=== PATIENT | female | born 1975 | race Caucasian/White ===

== ENCOUNTER 2022-07-31 21:02 | Emergency (ER) | payer OTHER ==
[2022-07-31 21:16] VITALS: BP 100/65; PULSE 76; RESP 18; TEMP 98; BMI 23.9
== END 2022-07-31 23:27 | disposition home or self-care (01) ==
LOC: JER 21:02
DX: F10.288 Alcohol dependence with other alcohol-induced disorder (principal); F11.90 Opioid use, unspecified, uncomplicated; F19.10 Other psychoactive substance abuse, uncomplicated; Y90.9 Presence of alcohol in blood, level not specified; Z20.822 Contact with and (suspected) exposure to COVID-19
CPT/HCPCS: 99283-25; C9803-CS; U0003; U0005

== ENCOUNTER 2022-08-01 19:52 | Emergency (ER) | payer OTHER ==
[2022-08-01 19:59] VITALS: BP 125/76; PULSE 72; RESP 19; TEMP 98.6; BMI 23.8
== END 2022-08-01 22:49 | disposition home or self-care (01) ==
LOC: JER 19:52
DX: F10.20 Alcohol dependence, uncomplicated (principal); F19.20 Other psychoactive substance dependence, uncomplicated
CPT/HCPCS: 99282-25

== ENCOUNTER 2022-08-01 23:36 | Inpatient (IN) | payer OTHER ==
[2022-08-02 00:38] VITALS: BMI 23.9
[2022-08-02] MEDS ORDERED: NALOXONE HCL 0.4 MG/ML VIAL IM PRN (01:14)
[2022-08-02] MEDS ORDERED: ONDANSETRON *ODT* 4 MG TABLET SL PRN (01:14)
[2022-08-02] MEDS ORDERED: NICOTINE POLACRILEX 2 MG GUM BUC PRN (01:14)
[2022-08-02] MEDS ORDERED: MAGNESIUM HYDROX 2400MG/30ML ORAL SUSPENSION 30 ML CUP PO PRN (01:14)
[2022-08-02] MEDS ORDERED: MAG HYDROX/AL HYDROX/SIMETH 30 ML UNIT-DOSE CUP PO PRN (01:14)
[2022-08-02] MEDS ORDERED: ACETAMINOPHEN 325 MG TABLET (FP) PO PRN (01:14)
[2022-08-02] MEDS ORDERED: BENZOCAINE/MENTHOL (CHLORASEPTIC ) LOZENGE MM PRN (01:14)
[2022-08-02] MEDS ORDERED: NALOXONE HCL (KLOXXADO) 8 MG SPRAY NS PRN (01:14)
[2022-08-02] MEDS ORDERED: BENZONATATE 200 MG CAPSULE PO PRN (01:14)
[2022-08-02] MEDS ORDERED: guaiFENesin 600 MG TABLET.ER (FP) PO PRN (01:14)
[2022-08-02] MEDS ORDERED: POLYETHYLENE GLYCOL (HEALTHYLAX) 3350 17 GM PACKET PO PRN (01:14)
[2022-08-02] MEDS ORDERED: hydrOXYzine PAMOATE 25 MG CAPSULE (FP) PO PRN (01:14)
[2022-08-02] MEDS ORDERED: BISMUTH SUBSALICYLATE 524 MG/30 ML PO PRN (01:14)
[2022-08-02] MEDS ORDERED: IBUPROFEN 400 MG TABLET (FP) PO PRN (01:14)
[2022-08-02] MEDS ORDERED: LOPERAMIDE HCL 2 MG CAPSULE PO PRN (01:14)
[2022-08-02] MEDS ORDERED: DICYCLOMINE HCL 10 MG CAPSULE PO PRN (01:14)
[2022-08-02] MEDS: NICOTINE 14 MG/24 HOURS TOPICAL PATCH TD SCH (10:44)
[2022-08-02] MEDS: PRENATAL VITAMINS W/ FOLIC ACID TABLET (FP) PO SCH (10:44)
[2022-08-02 13:52] LABS: HEMOGLOBIN 12.7 GM/dL (10.7-15.3); MCH 30.8 pg (25.7-33.7); MCHC 34.4 g/dl (32.0-36.0); MEAN CELL VOLUME 89.5 fl (80-96); MEAN PLT VOLUME 8.4 fl (7.5-11.1); PLATELET COUNT 210 10^3/uL (134-434); RBC 4.13 M/mm3 (3.60-5.2); RDW 13.5 % (11.6-15.6); WHITE BLOOD COUNT 3.4 K/mm3 (4.0-10.0)
[2022-08-02 14:04] LABS: POTASSIUM 3.6 mmol/L (3.5-5.1)
[2022-08-02 14:12] LABS: CALCIUM 8.5 mg/dL (8.5-10.1)
[2022-08-02 14:14] LABS: ALBUMIN 2.8 g/dl (3.4-5.0)
[2022-08-02 14:16] LABS: CREATININE 0.6 mg/dL (0.55-1.3)
[2022-08-02 14:17] LABS: BILIRUBIN,TOTAL 0.8 mg/dL (0.2-1)
[2022-08-02 14:18] LABS: TOT PROT 6.1 g/dl (6.4-8.2)
[2022-08-02] MEDS ORDERED: diazePAM 5 MG TABLET PO ONE (14:26)
[2022-08-02] MEDS ORDERED: diazePAM 5 MG TABLET PO PRN (14:26)
[2022-08-02] MEDS ORDERED: methaDONE HCL 40 MG DISPERSABLE TABLET PO SCH (14:45)
[2022-08-02] MEDS: IBUPROFEN 600 MG TABLET (FP) PO PRN (14:59)
[2022-08-02] MEDS: METHOCARBAMOL 500 MG TABLET PO PRN (14:59)
[2022-08-02] MEDS: diazePAM 5 MG TABLET PO SCH ×2 (17:15→22:10)
[2022-08-02 17:19] VITALS: RESP 18
[2022-08-02] MEDS: MELATONIN 5 MG TABLETS PO SCH (22:10)
[2022-08-02] MEDS: THIAMINE HCL 100 MG TABLET (FP) PO SCH (22:10)
[2022-08-03] MEDS: diazePAM 5 MG TABLET PO SCH ×4 (05:22→22:47)
[2022-08-03] MEDS: NICOTINE 14 MG/24 HOURS TOPICAL PATCH TD SCH (10:46)
[2022-08-03] MEDS: PRENATAL VITAMINS W/ FOLIC ACID TABLET (FP) PO SCH (10:46)
[2022-08-03] MEDS: METHOCARBAMOL 500 MG TABLET PO PRN (15:04)
[2022-08-03] MEDS: IBUPROFEN 600 MG TABLET (FP) PO PRN (15:05)
[2022-08-03 20:43] VITALS: BP 136/72; PULSE 81; TEMP 97.8
[2022-08-03] MEDS: MELATONIN 5 MG TABLETS PO SCH (22:46)
[2022-08-03] MEDS: THIAMINE HCL 100 MG TABLET (FP) PO SCH (22:46)
[2022-08-04] MEDS ORDERED: diazePAM 5 MG TABLET PO SCH (06:00)
[2022-08-05] MEDS ORDERED: diazePAM 5 MG TABLET PO SCH (06:00)
[2022-08-06] MEDS ORDERED: diazePAM 5 MG TABLET PO ONE (06:00)
== END 2022-08-03 23:55 | disposition left against medical advice (07) | DRG 770 ==
LOC: YASAS 23:36 → UNDOADMIN 08-02 02:28 → Y6N 08-02 02:28 → UNDODISIN 08-03 23:55
PROVIDERS: ADMIT Allergy & Immunology; ATTEND Allergy & Immunology
PROC: HZ2ZZZZ Detoxification Services for Substance Abuse Treatment (ICD-10-PCS; principal; 2022-08-02)
DX: F10.230 Alcohol dependence with withdrawal, uncomplicated (principal); F11.20 Opioid dependence, uncomplicated; F14.20 Cocaine dependence, uncomplicated; F17.210 Nicotine dependence, cigarettes, uncomplicated; F19.24 Other psychoactive substance dependence with psychoactive substance-induced mood disorder; J45.20 Mild intermittent asthma, uncomplicated; Z86.59 Personal history of other mental and behavioral disorders
CPT/HCPCS: 36415; 80053; 81025; 85027; 86780; 93005; 93010; 99283-25; C9803-CS; U0003; U0005

== ENCOUNTER 2024-09-28 14:55 | Inpatient (IN) | payer OTHER ==
[2024-09-28 15:33] VITALS: BMI 25.2
[2024-09-28] MEDS ORDERED: NICOTINE POLACRILEX 2 MG GUM BUC PRN (16:36)
[2024-09-28] MEDS ORDERED: NALOXONE (NARCAN) HCL 4 MG/0.1 ML SPRAY NS PRN (16:36)
[2024-09-28] MEDS ORDERED: NICOTINE POLACRILEX 2 MG LOZENGE BC PRN (16:36)
[2024-09-28] MEDS ORDERED: guaiFENesin 600 MG TABLET.ER (FP) PO PRN (16:36)
[2024-09-28] MEDS ORDERED: P-EPHED 60MG/TRIPROLIDI 2.5MG TABLET PO PRN (16:36)
[2024-09-28] MEDS ORDERED: LOPERAMIDE HCL 2 MG CAPSULE PO PRN (16:36)
[2024-09-28] MEDS ORDERED: BENZONATATE 200 MG CAPSULE PO PRN (16:36)
[2024-09-28] MEDS ORDERED: MAGNESIUM HYDROX 2400MG/30ML ORAL SUSPENSION 30 ML CUP PO PRN (16:36)
[2024-09-28] MEDS ORDERED: POLYETHYLENE GLYCOL (HEALTHYLAX) 3350 17 GM PACKET PO PRN (16:36)
[2024-09-28] MEDS ORDERED: BENZOCAINE/MENTHOL (CHLORASEPTIC ) LOZENGE MM PRN (16:36)
[2024-09-28] MEDS ORDERED: ACETAMINOPHEN 325 MG TABLET (FP) PO PRN (16:36)
[2024-09-28] MEDS ORDERED: ALBUTEROL SO4 HFA INHALER IH PRN (18:39)
[2024-09-28] MEDS: PANTOPRAZOLE 40 MG TABLET PO SCH (19:15)
[2024-09-28] MEDS: DOXYCYCLINE HYCLATE 100 MG TABLET PO SCH (19:15)
[2024-09-28] MEDS: TUBERCULIN PPD 5 TU/0.1ML SYRINGE (IN PATIENT USE ONLY) ID ONE (19:19)
[2024-09-28] MEDS ORDERED: TUBERCULIN PPD 5 TU/0.1ML SYRINGE (IN PATIENT USE ONLY) ID ONE (20:37)
[2024-09-28] MEDS: ATORVASTATIN CA 80 MG TABLET (FP) PO SCH (22:07)
[2024-09-28] MEDS: hydrOXYzine PAMOATE 25 MG CAPSULE (FP) PO PRN (22:07)
[2024-09-28] MEDS: THIAMINE 100 MG TABLET PO SCH (22:08)
[2024-09-28] MEDS: MELATONIN 5 MG TABLETS PO SCH (22:08)
[2024-09-29 02:34] LABS: URINE APPEARANCE Error; URINE BILIRUBIN NEGATIVE (NEGATIVE); URINE COLOR YELLOW; URINE GLUCOSE (UA) NEGATIVE (NEGATIVE); URINE KETONE NEGATIVE (NEGATIVE); URINE LEUK ESTERASE NEGATIVE (NEGATIVE); URINE NITRITE NEGATIVE (NEGATIVE); URINE PROTEIN NEGATIVE (NEGATIVE); URINE UROBILINOGEN 0.2 mg/dL (0.2-1.0)
[2024-09-29] MEDS: MAG HYDROX/AL HYDROX/SIMETH 30 ML UNIT-DOSE CUP PO PRN (07:17)
[2024-09-29] MEDS: ASPIRIN 81 MG CHEWABLE TABLETS PO SCH (09:54)
[2024-09-29] MEDS: PRENATAL VITAMINS W/ FOLIC ACID TABLET (FP) PO SCH (09:54)
[2024-09-29] MEDS: BACITRACIN 0.9 GM PACKET TP SCH (11:11)
[2024-09-29 11:34] LABS: MCHC 31.8 g/dl (32.2-35.5); MEAN CELL VOLUME 94.8 fl (79.4-94.8); MEAN PLT VOLUME 10.4 fl (9.4-12.3); RDW 13.4 % (12.2-17.1)
[2024-09-29 13:11] LABS: CO2 30 mmol/L (21-32); GLUCOSE,RANDOM 110 mg/dL (74-106)
[2024-09-29 13:14] LABS: CREATININE 0.7 mg/dL (0.55-1.3); SGOT/AST 17 U/L (15-37); SGPT/ALT 30 U/L (13-61)
[2024-09-29 13:16] LABS: TOT PROT 7.3 g/dl (6.4-8.2)
[2024-09-29 13:20] LABS: ALK PHOS 60 U/L (45-117)
[2024-09-29 14:11] LABS: SYPHILIS W/ RPR CONF NON-REACTIVE (NONREACTIVE)
[2024-09-29 15:16] LABS: HCV DIAGNOSTIC IN-HOUSE W/RFLX REACTIVE (NONREACTIVE)
[2024-09-29 15:24] LABS: HIV INTERPRETATION NEGATIVE (NEGATIVE)
[2024-09-29] MEDS: traZODone HCL 100 MG TABLET (FP) PO SCH (21:45)
[2024-10-01] MEDS: IBUPROFEN 400 MG TABLET (FP) PO PRN (17:40)
[2024-10-03] MEDS: IBUPROFEN 600 MG TABLET (FP) PO PRN (13:11)
[2024-10-06] MEDS ORDERED: ATORVASTATIN CA 40 MG TABLET (FP) ONE (19:50)
[2024-10-07] MEDS: FAMOTIDINE 10 MG TABLET PO SCH (15:30)
[2024-10-07] MEDS: PANTOPRAZOLE 20 MG TABLET PO SCH (16:15)
[2024-10-07] MEDS ORDERED: ATORVASTATIN CA 40 MG TABLET (FP) ONE (19:52)
[2024-10-08] MEDS ORDERED: ATORVASTATIN CA 40 MG TABLET (FP) ONE (19:52)
[2024-10-08] MEDS: traZODone HCL 50 MG TABLET (FP) PO SCH (21:33)
[2024-10-09] MEDS ORDERED: ATORVASTATIN CA 40 MG TABLET (FP) ONE (20:41)
[2024-10-10] MEDS ORDERED: ATORVASTATIN CA 20 MG TABLET (FP) ONE (19:59)
[2024-10-11] MEDS ORDERED: ATORVASTATIN CA 40 MG TABLET (FP) ONE (19:49)
[2024-10-12] MEDS ORDERED: ATORVASTATIN CA 40 MG TABLET (FP) ONE (20:10)
[2024-10-13] MEDS ORDERED: ATORVASTATIN CA 40 MG TABLET (FP) ONE (19:55)
[2024-10-14] MEDS ORDERED: ATORVASTATIN CA 40 MG TABLET (FP) ONE (19:47)
[2024-10-15] MEDS ORDERED: ATORVASTATIN CA 40 MG TABLET (FP) ONE (20:00)
[2024-10-16] MEDS ORDERED: ATORVASTATIN CA 40 MG TABLET (FP) ONE (20:19)
[2024-10-17] MEDS ORDERED: ATORVASTATIN CA 40 MG TABLET (FP) ONE (19:51)
[2024-10-18] MEDS ORDERED: ATORVASTATIN CA 40 MG TABLET (FP) ONE (19:50)
[2024-10-19 07:26] VITALS: BP 112/67; PULSE 82; RESP 18; TEMP 97.6
== END 2024-10-19 10:47 | disposition home or self-care (01) | DRG 772 ==
LOC: YASAS 14:55 → Y3NR 17:12 → Y5N 10-06 11:52
PROVIDERS: ADMIT Neuromusculoskeletal Medicine & OMM; ATTEND Psychiatry & Neurology Pain Medicine
PROC: HZ42ZZZ Group Counseling for Substance Abuse Treatment, Cognitive-Behavioral (ICD-10-PCS; principal; 2024-09-28)
DX: F14.20 Cocaine dependence, uncomplicated (principal); F17.210 Nicotine dependence, cigarettes, uncomplicated; F31.9 Bipolar disorder, unspecified; F41.9 Anxiety disorder, unspecified; F39 Unspecified mood [affective] disorder; G47.00 Insomnia, unspecified; E78.5 Hyperlipidemia, unspecified; J45.20 Mild intermittent asthma, uncomplicated; K21.9 Gastro-esophageal reflux disease without esophagitis; Z86.73 Personal history of transient ischemic attack (TIA), and cerebral infarction without residual deficits; Z59.00 Homelessness unspecified
CPT/HCPCS: 36415; 80053; 80305; 80307; 81003; 81025; 85027; 86780; 86803; 87389; 87522; 87811; 93005; 93010

== ENCOUNTER 2024-12-06 20:51 | Inpatient (IN) | payer OTHER ==
[2024-12-06 18:17] VITALS: BMI 26.5
[~2024-12-06 20:51] MED LIST: ACETAMINOPHEN 325 MG TABLET (FP) PO PRN; BENZOCAINE/MENTHOL (CHLORASEPTIC ) LOZENGE MM PRN; BENZONATATE 200 MG CAPSULE PO PRN; MAG HYDROX/AL HYDROX/SIMETH 30 ML UNIT-DOSE CUP PO PRN; MAGNESIUM HYDROX 2400MG/30ML ORAL SUSPENSION 30 ML CUP PO PRN; NALOXONE (NARCAN) HCL 4 MG/0.1 ML SPRAY NS PRN; NICOTINE POLACRILEX 2 MG GUM BUC PRN; NICOTINE POLACRILEX 2 MG LOZENGE BC PRN; POLYETHYLENE GLYCOL (HEALTHYLAX) 3350 17 GM PACKET PO PRN; guaiFENesin 600 MG TABLET.ER (FP) PO PRN
[2024-12-06] MEDS: THIAMINE 100 MG TABLET PO SCH (23:55)
[2024-12-06] MEDS: hydrOXYzine PAMOATE 25 MG CAPSULE (FP) PO PRN (23:55)
[2024-12-06] MEDS: MELATONIN 5 MG TABLETS PO SCH (23:55)
[2024-12-07] MEDS ORDERED: ALBUTEROL SO4 HFA INHALER IH PRN (08:33)
[2024-12-07 10:33] LABS: MCHC 31.7 g/dl (32.2-35.5); MEAN CELL VOLUME 92.5 fl (79.4-94.8); MEAN PLT VOLUME 10.9 fl (9.4-12.3); RDW 14.1 % (12.2-17.1)
[2024-12-07 10:38] LABS: GLUCOSE,RANDOM 85.0 mg/dL (74-106)
[2024-12-07 10:39] LABS: TOT PROT 8.1 g/dl (6.4-8.2)
[2024-12-07 10:40] LABS: CO2 26.0 mmol/L (21-32)
[2024-12-07 10:41] LABS: ALK PHOS 109.0 U/L (40-150)
[2024-12-07] MEDS: PATIENT'S OWN MEDICATION (NON-FORMULARY) (Doxycycline Hyclate [Doxycycline Hyclate] 100 MG PO SCH (10:43)
[2024-12-07] MEDS: ASPIRIN 81 MG CHEWABLE TABLETS PO SCH (10:43)
[2024-12-07] MEDS: PRENATAL VITAMINS W/ FOLIC ACID TABLET (FP) PO SCH (10:43)
[2024-12-07] MEDS: PATIENT'S OWN MEDICATION (NON-FORMULARY) (Metronidazole [Metronidazole] 500 MG Tablet) PO SCH (10:43)
[2024-12-07] MEDS: PANTOPRAZOLE 40 MG TABLET PO SCH (10:43)
[2024-12-07] MEDS: levETIRAcetam 500 MG TABLET (FP) PO SCH (10:43)
[2024-12-07 10:44] LABS: CREATININE 0.56 mg/dL (0.55-1.3); SGOT/AST 43.0 U/L (5-34); SGPT/ALT 121.0 U/L (0-55)
[2024-12-07 10:45] LABS: URINE APPEARANCE CLEAR; URINE BILIRUBIN NEGATIVE (NEGATIVE); URINE COLOR YELLOW; URINE GLUCOSE (UA) NEGATIVE (NEGATIVE); URINE KETONE NEGATIVE (NEGATIVE); URINE LEUK ESTERASE NEGATIVE (NEGATIVE); URINE NITRITE NEGATIVE (NEGATIVE); URINE PROTEIN NEGATIVE (NEGATIVE); URINE UROBILINOGEN 0.2 mg/dL (0.2-1.0)
[2024-12-07] MEDS ORDERED: ATORVASTATIN CA 40 MG TABLET (FP) ONE (20:26)
[2024-12-07] MEDS: traZODone HCL 100 MG TABLET (FP) PO SCH (21:10)
[2024-12-07] MEDS: ATORVASTATIN CA 80 MG TABLET (FP) PO SCH (21:11)
[2024-12-08] MEDS ORDERED: ATORVASTATIN CA 40 MG TABLET (FP) ONE (19:58)
[2024-12-09] MEDS: IBUPROFEN 600 MG TABLET (FP) PO PRN (06:52)
[2024-12-09] MEDS ORDERED: ATORVASTATIN CA 40 MG TABLET (FP) ONE (20:43)
[2024-12-10] MEDS: IBUPROFEN 400 MG TABLET (FP) PO PRN (06:31)
[2024-12-10 18:23] LABS: HIV INTERPRETATION NEGATIVE (NEGATIVE)
[2024-12-10] MEDS ORDERED: ATORVASTATIN CA 40 MG TABLET (FP) ONE (20:23)
[2024-12-11] MEDS ORDERED: ATORVASTATIN CA 40 MG TABLET (FP) ONE (19:46)
[2024-12-12] MEDS ORDERED: ATORVASTATIN CA 40 MG TABLET (FP) ONE (20:12)
[2024-12-13] MEDS: ACYCLOVIR 400 MG TABLET PO SCH (13:45)
[2024-12-13] MEDS ORDERED: ATORVASTATIN CA 40 MG TABLET (FP) ONE (18:54)
[2024-12-14 12:04] LABS: ABSOLUTE IMMATURE GRANULOCYTES 0.01 x10^3/uL (0.0-0.031); BASOPHILS # 0.03 x10^3/uL (0.01-0.08); EOSINOPHIL % 1.3 % (0.7-5.8); EOSINOPHILS # 0.09 x10^3/uL (0.04-0.36); MCHC 31.7 g/dl (32.2-35.5); MEAN CELL VOLUME 91.6 fl (79.4-94.8); MEAN PLT VOLUME 11.1 fl (9.4-12.3); MONOCYTE # 0.58 x10^3/uL (0.24-0.86); MONOCYTE % 8.5 % (4.7-12.5); RDW 14.1 % (12.2-17.1)
[2024-12-14 12:08] LABS: INR 0.94 (0.83-1.09); PROTHROMBIN TIME (PATIENT) 10.3 SEC (9.7-13.0)
[2024-12-14 12:31] LABS: GLUCOSE,RANDOM 83.0 mg/dL (74-106); TOT PROT 8.5 g/dl (6.4-8.2)
[2024-12-14 12:32] LABS: CO2 26.0 mmol/L (21-32)
[2024-12-14 12:34] LABS: ALK PHOS 75.0 U/L (40-150)
[2024-12-14 12:37] LABS: CREATININE 0.62 mg/dL (0.55-1.3); SGOT/AST 39.0 U/L (5-34); SGPT/ALT 59.0 U/L (0-55)
[2024-12-14] MEDS ORDERED: ATORVASTATIN CA 40 MG TABLET (FP) ONE (20:09)
[2024-12-15] MEDS ORDERED: ATORVASTATIN CA 40 MG TABLET (FP) ONE (20:05)
[2024-12-16] MEDS ORDERED: ATORVASTATIN CA 40 MG TABLET (FP) ONE (20:09)
[2024-12-17] MEDS ORDERED: ATORVASTATIN CA 40 MG TABLET (FP) ONE (18:52)
[2024-12-17] MEDS: hydrOXYzine PAMOATE 25 MG CAPSULE (FP) PO PRN (21:17)
[2024-12-17] MEDS: traZODone HCL 100 MG, traZODone HCL 50 MG PO SCH (21:18)
[2024-12-17] MEDS ORDERED: traZODone HCL 100 MG TABLET (FP) PO SCH (22:00)
[2024-12-18] MEDS ORDERED: ATORVASTATIN CA 40 MG TABLET (FP) ONE (19:31)
[2024-12-19] MEDS ORDERED: ATORVASTATIN CA 40 MG TABLET (FP) ONE (19:35)
[2024-12-19] MEDS: DOXYCYCLINE HYCLATE 100 MG TABLET PO SCH (22:25)
[2024-12-20] MEDS: PRENATAL VITAMINS W/ FOLIC ACID TABLET (FP) PO SCH (07:24)
[2024-12-20] MEDS ORDERED: DOXYCYCLINE HYCLATE 100 MG TABLET PO SCH (10:00)
[2024-12-20] MEDS: SULFAMETHOXAZOLE/TRIMETHOPRIM 800MG/160MG D.S. TABLET PO SCH (10:32)
[2024-12-20] MEDS ORDERED: ATORVASTATIN CA 40 MG TABLET (FP) ONE (20:38)
[2024-12-21] MEDS ORDERED: ATORVASTATIN CA 40 MG TABLET (FP) ONE (19:52)
[2024-12-22] MEDS ORDERED: ATORVASTATIN CA 40 MG TABLET (FP) ONE (20:11)
[2024-12-23] MEDS ORDERED: ATORVASTATIN CA 40 MG TABLET (FP) ONE (20:26)
[2024-12-23] MEDS: MIRTAZAPINE 15 MG TABLET (FP) PO SCH (21:49)
[2024-12-23] MEDS: traZODone HCL 100 MG TABLET (FP) PO SCH (21:49)
[2024-12-23] MEDS: CLINDAMYCIN HCL 150 MG CAPSULE (FP) PO SCH (23:43)
[2024-12-24] MEDS: PRENATAL VITAMINS W/ FOLIC ACID TABLET (FP) PO SCH (06:36)
[2024-12-24] MEDS: NALTREXONE HCL 50 MG TABLET PO ONE (10:14)
[2024-12-24] MEDS: METHOCARBAMOL 500 MG TABLET PO PRN (19:46)
[2024-12-24] MEDS ORDERED: ATORVASTATIN CA 40 MG TABLET (FP) ONE (20:07)
[2024-12-25] MEDS ORDERED: NALTREXONE HCL 50 MG TABLET PO SCH (10:00)
[2024-12-25] MEDS: CLINDAMYCIN HCL 150 MG CAPSULE (FP) PO ONE (10:45)
[2024-12-25] MEDS ORDERED: ATORVASTATIN CA 40 MG TABLET (FP) ONE (20:06)
[2024-12-26] MEDS ORDERED: ATORVASTATIN CA 40 MG TABLET (FP) ONE (19:57)
[2024-12-27] MEDS ORDERED: ATORVASTATIN CA 40 MG TABLET (FP) ONE (20:57)
[2024-12-28] MEDS: VITAMINS A AND D TOPICAL OINTMENT TP PRN (20:36)
[2024-12-29] MEDS ORDERED: ATORVASTATIN CA 40 MG TABLET (FP) ONE (20:15)
[2024-12-30] MEDS ORDERED: ATORVASTATIN CA 40 MG TABLET (FP) ONE (20:36)
[2024-12-31] MEDS ORDERED: ATORVASTATIN CA 40 MG TABLET (FP) ONE (20:58)
[2024-12-31] MEDS: CLINDAMYCIN HCL 150 MG CAPSULE (FP) PO SCH (21:08)
[2025-01-01] MEDS ORDERED: ATORVASTATIN CA 40 MG TABLET (FP) ONE (20:21)
[2025-01-02] MEDS: LOPERAMIDE HCL 2 MG CAPSULE PO PRN (09:05)
[2025-01-02] MEDS ORDERED: ATORVASTATIN CA 40 MG TABLET (FP) ONE (20:36)
[2025-01-03 07:06] VITALS: RESP 18; TEMP 97.3
[2025-01-03 10:08] VITALS: BP 107/56; PULSE 73
== END 2025-01-03 10:10 | disposition home or self-care (01) | DRG 772 ==
LOC: YASAS 20:51 → Y3NR 23:25 → Y5N 12-07 17:35 → Y3NR 12-24 21:52 → Y5N 12-25 16:25
PROVIDERS: ADMIT Neuromusculoskeletal Medicine & OMM; ATTEND Psychiatry & Neurology Pain Medicine
PROC: HZ42ZZZ Group Counseling for Substance Abuse Treatment, Cognitive-Behavioral (ICD-10-PCS; principal; 2024-12-06)
DX: F14.20 Cocaine dependence, uncomplicated (principal); E78.5 Hyperlipidemia, unspecified; K21.9 Gastro-esophageal reflux disease without esophagitis; J45.909 Unspecified asthma, uncomplicated; N61.1 Abscess of the breast and nipple; F17.210 Nicotine dependence, cigarettes, uncomplicated; G47.00 Insomnia, unspecified; G40.909 Epilepsy, unspecified, not intractable, without status epilepticus; R51.9 Headache, unspecified; R04.0 Epistaxis; I69.322 Dysarthria following cerebral infarction; Z22.322 Carrier or suspected carrier of Methicillin resistant Staphylococcus aureus
CPT/HCPCS: 36415; 80053; 80305; 81003; 83735; 85025; 85027; 85610; 86780; 87389